=== PATIENT | male | born 1960 | race African-American/Black ===

== ENCOUNTER → 2021-07-15 | Outpatient (CLI) | payer OTHER | LOC: SJCVCIMAG 06:34 | PROVIDERS: ATTEND Internal Medicine Cardiovascular Disease | DX: I08.3 Combined rheumatic disorders of mitral, aortic and tricuspid valves (principal); R07.9 Chest pain, unspecified; I48.92 Unspecified atrial flutter; I35.1 Nonrheumatic aortic (valve) insufficiency; I10 Essential (primary) hypertension; E78.00 Pure hypercholesterolemia, unspecified; R60.9 Edema, unspecified; K21.9 Gastro-esophageal reflux disease without esophagitis; E03.9 Hypothyroidism, unspecified; E11.9 Type 2 diabetes mellitus without complications; E78.5 Hyperlipidemia, unspecified; Z79.82 Long term (current) use of aspirin; Z79.84 Long term (current) use of oral hypoglycemic drugs; Z79.899 Other long term (current) drug therapy; Z72.89 Other problems related to lifestyle; Z79.01 Long term (current) use of anticoagulants ==

== ENCOUNTER → 2021-07-18 | Outpatient (CLI) | payer OTHER | LOC: NUC 07:15 | PROVIDERS: ATTEND Internal Medicine Cardiovascular Disease | DX: R07.9 Chest pain, unspecified (principal); I10 Essential (primary) hypertension; R00.2 Palpitations ==

== ENCOUNTER → 2021-07-19 | Outpatient (CLI) | payer OTHER | LOC: SJCVC 13:53 | PROVIDERS: ATTEND Internal Medicine Cardiovascular Disease | DX: R94.31 Abnormal electrocardiogram [ECG] [EKG] (principal); I45.10 Unspecified right bundle-branch block; I48.0 Paroxysmal atrial fibrillation; I48.3 Typical atrial flutter; I45.2 Bifascicular block; I48.92 Unspecified atrial flutter; E11.22 Type 2 diabetes mellitus with diabetic chronic kidney disease; N18.9 Chronic kidney disease, unspecified; K21.9 Gastro-esophageal reflux disease without esophagitis; E78.5 Hyperlipidemia, unspecified; E03.9 Hypothyroidism, unspecified; Z79.82 Long term (current) use of aspirin; Z79.01 Long term (current) use of anticoagulants; Z79.899 Other long term (current) drug therapy; Z79.84 Long term (current) use of oral hypoglycemic drugs; Z72.89 Other problems related to lifestyle ==

== ENCOUNTER 2021-08-03 06:25 | Observation (INO) | payer OTHER ==
[~2021-08-03] VITALS: Ht 177.8 cm; Wt 78.6 kg
[2021-08-03] VITALS (9 sets, daily range): BP systolic 115–162; BP diastolic 70–100
[2021-08-03] MEDS ORDERED: ASA81BEC PO (07:42)
[2021-08-03] MEDS ORDERED: LIPITOR 20 MG T20 M1 PO (07:43)
[2021-08-03] MEDS ORDERED: EUTHYROX125 MCG PO (07:44)
[2021-08-03] MEDS ORDERED: GLIMEPIRIDE4 MG PO (07:44)
[2021-08-03] MEDS ORDERED: METFORMIN HCL500 M3 PO (07:46)
[2021-08-03] MEDS ORDERED: PREDNISONE 5 MG5 MG PO (07:49)
[2021-08-03] MEDS ORDERED: METOPROLOL SUC100 MG PO (07:49)
[2021-08-03] MEDS ORDERED: TACROLIMUS5 MG PO (07:50)
[2021-08-03] MEDS ORDERED: WARFARIN SODIUM5 MG PO (07:50)
[2021-08-03 07:51] LABS: HEMATOCRIT 33.6 % (42.0-52.0); MCH 30.8 pg (26.0-34.0); MCHC 32.8 g/dL (28.0-37.0); PLATELET COUNT 158 thou/uL (150-400); RBC 3.58 mil/uL (4.50-6.00); RDW 14.9 % (10.5-14.5); WBC 2.4 thou/uL (4.0-11.0)
[2021-08-03] MEDS ORDERED: WARFARIN SODIU2.5 MG PO (07:51)
[2021-08-03 08:17] LABS: APTT 52.6 Seconds (24.5-32.8); INR 2.2; PROTIME 23.1 Seconds (10.5-12.1)
[2021-08-03 08:31] LABS: CALCIUM 8.9 mg/dL (8.5-10.1); CREATININE 1.9 mg/dL (0.7-1.3); POTASSIUM 4.1 mmol/L (3.5-5.1)
[2021-08-03 08:37] LABS: ALBUMIN 3.8 g/dL (3.4-5.0); TOTAL BILIRUBIN 0.6 mg/dL (0.2-1.0); TOTAL PROTEIN 7.1 g/dL (6.4-8.2)
--- NOTE | 2021-08-03 09:54 | TEE ---
[facility] [address] [address] TRANSESOPHAGEAL ECHOCARDIOGRAM Name: DALIA ALATORRE Room #: REG [facility]#: [id number] Admission: 08/03/21 Attend Phys: Yovani Torres MD, Discharge: Date of : 56 Report #: [id number] THIS REPORT FOR: cc: Don Carmichael Alan Z. DO Santiago, Patrick MD [facility] ~ APPROVED REPORT Study performed: 08/03/2021 08:06:45 EXAM: Transesophageal Echocardiogram Patient Location: EP LAB Status: routine BSA: 1.92 HR: 60 bpm BP: 141/91 mmHg Rhythm: Atrial Fibrillation Other Information Study Quality: Adequate Indications Atrial Fibrillation Pre-Ablation. Rule out clot. Procedure After obtaining informed consent, patient underwent transesophageal echo in the EP Lab. Type of Sedation : Conscious Sedation Sedation was administered by anesthesia. Transesophageal probe was inserted and advanced into esophagus without difficulty by Yovani Torres MD, FAC. Echo enhancement indication: R/O Septal defect. Echo enhancement agent administered: Agitated Saline The JAMES was performed without complications. Throughout the procedure, the blood pressure, pulse oximetry, cardiac rhythm, and rate were monitored. The patient tolerated the procedure without adverse effects. Recovery from conscious sedation was uneventful and vital signs were stable. Left Ventricle The left ventricle is normal size. There is normal LV segmental wall motion. Left ventricular hypertrophy. Left ventricular systolic [address] [address] TRANSESOPHAGEAL ECHOCARDIOGRAM Name: DALIA ALATORRE Room #: REG [facility]#: [id number] Admission: 08/03/21 Attend Phys: Yovani Torres, Discharge: Date of : 56 Report #: [id number] function is normal. LVEF is 60-65%. Right Ventricle The right ventricle is normal size. The right ventricular systolic function is normal. Atria Biatrial enlargement. No thrombus is visualized in the left atrium or appendage. No shunting with bubble study. Aortic Valve Aortic valve is trileaflet; sclerotic. Mild aortic regurgitation. Mitral Valve The mitral valve is normal in structure. Mild to moderate mitral regurgitation. Tricuspid Valve The tricuspid valve is normal in structure. Mild tricuspid regurgitation. Pulmonic Valve The pulmonary valve is normal in structure. Great Vessels Mild atherosclerotic plaque is present in the descending aorta. Pericardium There is no pericardial effusion. <Conclusion> Consent was obtained JAMES was performed in the EP lab sedation by anesthesiologist Preablation JAMES Esophageal probe was advanced without difficulty Left atrial appendage no obvious mass or clot detected Mild biatrial enlargement Normal left ventricle size/wall thickness Ejection fraction 60% Normal right ventricle size/function Mild aortic valve insufficiency Moderate mitral valve insufficiency No evidence of tricuspid valve insufficiency [facility] [address] [place] [address] TRANSESOPHAGEAL ECHOCARDIOGRAM Name: DALIA ALATORRE [facility] [id number] Admission: 08/03/21 Attend Phys: Yovani Torres, Discharge: Date of : 56 Report #: [id number] No pericardial effusion Mild atherosclerosis in the aorta. No evidence of ASD/VSD by color flow/bubble study Normal aortic root size. <ELECTRONICALLY SIGNED> By: Yovani Torres MD, FACC 08/03/21953 3 3 Yovani Torres MD, FACC /INF
[2021-08-03 11:45] LABS: ABSOLUTE NEUTROPHILS 0.9 thou/uL (1.4-8.2); ANISOCYTOSIS 1+; METAMYELOCYTES 1 %
--- NOTE | 2021-08-03 14:30 | 2DMMODE ---
[address] [address] D/M-MODE ECHOCARDIOGRAM Name: DALIA ALATORRE Room #: 214-P [facility]#: [id number] Admission: 08/03/21 Attend Phys: Yovani Torres MD, Discharge: Date of : 56 Report #: [id number] THIS REPORT FOR: cc: Don Carmichael Alan Z. DO Lundgren, Craig H. MD [facility] ~ APPROVED REPORT Study performed: 08/03/2021 12:14:58 EXAM: Limited 2D Echocardiogram Patient Location: PACU Status: STAT HR: 70 bpm BP: 144/90 mmHg Rhythm: NSR Other Information Study Quality: Good Indications STAT echo to rule out pericardial effusion s/p ablation. Chest pain. Had JAMES pre-ablation. Left Ventricle The left ventricle is normal size. There is normal LV segmental wall motion. Left ventricular hypertrophy. Left ventricular systolic function is normal. LVEF is 70%. Right Ventricle The right ventricle is normal size. The right ventricular systolic function is normal. Atria Left atrium is dilated. The right atrium size is normal. Aortic Valve Aortic valve is trileaflet; thickened and calcified. Mitral Valve The mitral valve is normal in structure. Tricuspid Valve [address] [address] 2 D/M-MODE ECHOCARDIOGRAM Name: DALIA ALATORRE Room #: 214-P [facility]#: [id number] Admission: 08/03/21 Attend Phys: Yovani Torres, Discharge: Date of : 56 Report #: [id number] The tricuspid valve is normal in structure. Great Vessels IVC is not well visualized. Pericardium Trace posterior pericdial effusion. <Conclusion> Abbreviated study Left ventricular systolic function is normal. There is normal LV segmental wall motion. LVEF is 70%. Aortic valve is trileaflet; thickened and calcified. The mitral valve is normal in structure. Trace posterior pericdial effusion. <ELECTRONICALLY SIGNED> By: Juan Kapadia MD, FACC 08/03/21 1430 1430 143 Juan Kapadia MD, FACC /INF
--- NOTE | 2021-08-03 19:56 | NUR ---
RECEIVED PT FROM PACU POST AFIB/AFLUTTER ABLATION. PT IS AXOX4, PLEASANT; VSS, AFEBRILE, SR ON THE MONITOR. R GROIN SITE, MYNX DRESSING, C/D/I, NO HEMATOMA. PT IS UP AD SUSAN, USES HANDRAILS IN HALLS NEEDED, GAIT STEADY, REQUIRES EXTRA TIME. POC IS TO CONTINUE TO MONITOR GROIN SITE; POSS D/C IN AM. LOW FALL PRECAUTIONS IN PLACE. NO CONCERNS AT THIS TIME.
[2021-08-03] MEDS ORDERED: MYFORTIC360 MG PO (21:06)
[2021-08-03] MEDS ORDERED: MYFORTIC180 MG PO (21:06)
[2021-08-04 03:58] VITALS: BP 112/64
--- NOTE | 2021-08-04 05:55 | NUR ---
NO SIGNIFICANT EVENTS DURING THE NIGHT. PT C/O SORE THROAT. TYLENOL GIVEN WITH SOME RELIEF. PT SLEPT MOST OF THE NIGHT. RESPIRATIONS EVEN AND UNLABORED. NO C/O CHEST PAIN. RIGHT GROIN SITE C/D/I, NO HEMATOMA, SMALL AMOUNT DRIED DRAINAGE NOTED. VSS. AFEBRILE. UP W/ SBA TO BTR. STEADY GAIT. PROGRESSING TOWARD POC GOALS.
[2021-08-04 06:19] LABS: PROTIME 43.6 Seconds (10.5-12.1)
[2021-08-04 06:25] LABS: INR 4.29
[2021-08-04 08:00] VITALS: BP 114/82
--- NOTE | 2021-08-04 08:17 | EKG ---
[address] [address] ELECTROCARDIOGRAM REPORT Name: DALIA ALATORRE Room #: 214[facility].#: [id number] Admission: 08/03/21 Attend Phys: Yovani Torres MD, Discharge: Date of : 56 Report #: [id number] [facility] Test Date: 2021-08-03 Test Time: 12:28:34 Pat Name: DALIA ALATORRE Department: Room: 214 Gender: M [employer] Linesman: TROY : 1960 Requested By: Isabella Zhang Order Number: [id number] : Yovani Torres Measurements Intervals [place] Rate: 64 P: 13 DE: 176 QRS: -50 QRSD: 156 T: 20 QT: 431 QTc: 445 Interpretive Statements Sinus rhythm Atrial premature complex RBBB No previous ECG available for comparison Electronically Signed On 08-04-2021 8:17:15 CDT by Yovani Torres [email or web address] <ELECTRONICALLY SIGNED> By: Yovani Torres MD, [facility] 08/04/21 0817 1228 1228 Yovani Torres MD, FACC /EPI
--- NOTE | 2021-09-12 11:31 | P ---
[facility] [place] [address] PROCEDURE REPORT Name: DALIA ALATORRE [facility] [id number] Admission: 08/03/21 Attend Phys: Yovani Torres MD, Discharge: 08/04/21 Date of : 56 Report #: [id number] THIS REPORT FOR: cc: Don Carmichael Alan Z. DO Couchonnal, Luis F. MD ~ DATE OF SERVICE: 08/03/2021 PREOPERATIVE DIAGNOSES: 1. Atrial fibrillation. 2. Typical atrial flutter. 3. Bifascicular block. PROCEDURES PERFORMED: 1. Atrial fibrillation ablation, CPT code 56831. 2. 3D mapping, CPT code 82795. 3. Intracardiac echo, CPT code 63253. 4. Second pathway ablation -- CPT code 35839. HISTORY: The patient is a 61-year-old with history of atrial fibrillation, atrial flutter and bifascicular block, here for ablation. ANESTHESIA: The patient underwent general anesthesia with no anesthesia related complications. DESCRIPTION OF PROCEDURE: The patient underwent informed consent. He was then brought to the EP laboratory in fasting and nonsedated state. He was prepped and draped in a standard fashion. I then obtained access to the right femoral vein x3, placing an 8, 9 and 7-Sami short sheath using the modified Seldinger technique. The patient had known IVC filter and under fluoroscopy, I closely monitored all catheter and sheath exchanges and there was never any compromise the IVC filter. I placed an ICE catheter into the right atrium and a Decapolar catheter in the coronary sinus and then the patient was systemically heparinized and a transseptal was performed using SL1 sheath and a Cleveland needle. This was straightforward and I exchanged for the cryosheath and placed the Lasso catheter in the left atrium. I then created a 3D geometry of the left atrium using the Lasso catheter. We then started isolating the pulmonary veins. The left superior pulmonary vein underwent a 4-minute freeze and isolated at 40 seconds. The left inferior pulmonary vein underwent a 4-minute freeze isolating at 150 seconds and an additional 2-minute freeze was performed. The right superior pulmonary vein underwent a 200 seconds freeze and isolated at 74 milliseconds. The right inferior pulmonary vein underwent a 4-minute freeze and isolated at 14 seconds. Next, I performed a repeat voltage map and all veins were now isolated. The patient was prepped for atrial flutter ablation using an 8 mm ablation [facility] [address] [place] [address] PROCEDURE REPORT Name: DALIA ALATORRE [facility] #: [facility] [id number] Admission: 08/03/21 Attend Phys: Yovani Torres MD, Discharge: 08/04/21 Date of : 56 Report #: [id number] catheter and a ramp sheath. Ablation was performed at 70 de [place] torre, 60 degrees and a continuous drag lesion was performed. Preablation, the transisthmus conduction time was 60. Post-ablation was 145 with activation consistent with bidirectional block. The patient was in sinus rhythm with sinus cycle length of 1059 milliseconds, MN interval 180 milliseconds, QRS duration 150 milliseconds with a right bundle branch block, QT interval 410 milliseconds, AH interval 100 milliseconds, HV interval 58 milliseconds. As such, the procedure was concluded and there were no procedural related complications. All catheters and sheaths were pulled and hemostasis obtained. CONCLUSION: 1. Successful atrial fibrillation ablation. 2. Successful atrial flutter ablation with bidirectional block. <ELECTRONICALLY SIGNED> By: Franklin Dinero MD 09/12/21 1131 1016 [id number] Franklin Dinero MD /nt
== END 2021-08-04 11:35 | disposition home or self-care (01) ==
LOC: CATH 06:25 → 2N 14:22 → CATH 21:09 → 2N 21:10
PROVIDERS: Nurse Practitioner; ADMIT Internal Medicine Cardiovascular Disease; ATTEND Internal Medicine
DX: I48.91 Unspecified atrial fibrillation (principal); I48.92 Unspecified atrial flutter; Z20.822 Contact with and (suspected) exposure to COVID-19; I45.2 Bifascicular block; I10 Essential (primary) hypertension; E11.9 Type 2 diabetes mellitus without complications; Z79.84 Long term (current) use of oral hypoglycemic drugs; E78.5 Hyperlipidemia, unspecified; Z86.718 Personal history of other venous thrombosis and embolism; Z79.01 Long term (current) use of anticoagulants; E03.9 Hypothyroidism, unspecified; Z79.899 Other long term (current) drug therapy
CPT/HCPCS: 62110; 62900; 65020; 70005

== ENCOUNTER → 2021-12-28 | Outpatient (CLI) | payer OTHER ==
[~2021-12-28] MED LIST: ASA81BEC PO; EUTHYROX125 MCG PO; GLIMEPIRIDE4 MG PO; LIPITOR 20 MG T20 M1 PO; METFORMIN HCL500 M3 PO; METOPROLOL SUC100 MG PO; MYFORTIC180 MG PO; MYFORTIC360 MG PO; PREDNISONE 5 MG5 MG PO; TACROLIMUS5 MG PO; WARFARIN SODIU2.5 MG PO; WARFARIN SODIUM5 MG PO
== END ==
LOC: SJCVC 12:44
PROVIDERS: ATTEND Internal Medicine Cardiovascular Disease
DX: Z51.81 Encounter for therapeutic drug level monitoring (principal); I12.9 Hypertensive chronic kidney disease with stage 1 through stage 4 chronic kidney disease, or unspecified chronic kidney disease; E11.22 Type 2 diabetes mellitus with diabetic chronic kidney disease; N18.9 Chronic kidney disease, unspecified; E03.9 Hypothyroidism, unspecified; E78.5 Hyperlipidemia, unspecified; Z79.01 Long term (current) use of anticoagulants; Z79.84 Long term (current) use of oral hypoglycemic drugs; Z79.82 Long term (current) use of aspirin; Z79.899 Other long term (current) drug therapy; Z82.49 Family history of ischemic heart disease and other diseases of the circulatory system; Z72.89 Other problems related to lifestyle